=== PATIENT | male | born 1945 | race Caucasian/White ===

== ENCOUNTER 2018-01-01 08:53 | Observation (INO) | payer OTHER, MEDICARE ==
--- NOTE | 2018-01-01 09:02 | EDM.PDOC ---
ED HPI GENERAL MEDICAL PROBLEM - General Chief Complaint: Trauma Stated Complaint: [id number] SLIPPED ON ICE Time Seen by Provider: 01/01/18 09:02 Source of Information: Reports: Patient, Family, RN, RN Notes Reviewed History Limitations: Reports: No Limitations - History of Present Illness INITIAL COMMENTS - FREE TEXT/NARRATIVE: Patient arrives from home by POV with complaint of pain to right ankle and right ribs sustained this morning from a ground level fall from slipping on the ice. Admits to hitting his head but denies loss of consciousness. Onset: Today, Sudden Duration: Constant Quality: Reports: Ache, Pressure, Throbbing Severity: Severe Improves with: Reports: Immobilization Worsens with: Reports: Movement Associated Symptoms: Reports: No Other Symptoms Right Chest Pain Score (Numeric/FACES): 3 Right Ankle Pain Score (Numeric/FACES): 4 - Related Data Allergies Allergy/AdvReac Type Severity Reaction Status Date / Time No Known Allergies Allergy Verified 01/01/18 14:09 Home Meds: Home Meds Hydrochlorothiazide/Lisinopril [Lisinopril-HCTZ 20-12.5 MG] 1 tab PO DAILY 01/01 [History] Latanoprost [Xalatan 0.005% Ophth Soln] 1 drop EYEBOTH BEDTIME 01/01/18 [History ] Lutein/Minerals/Vit A,C & E [I-Samantha] 1 tab PO DAILY 01/01/18 [History] glipiZIDE [Glipizide ER] 5 mg PO BID 01/01/18 [History] metFORMIN [Glucophage XR] 500 mg PO BID 01/01/18 [History] Past Medical History Neurological History: Reports: Neuropathy, Peripheral Endocrine/Metabolic History: Reports: Diabetes, Type II Social & Family History - Family History Family Medical History: Noncontributory - Living Situation & Occupation Living situation: Reports: with Family Occupation: Retired Review of Systems - Review of Systems Review Of Systems: ROS reveals no pertinent complaints other than HPI. ED EXAM, GENERAL - Physical Exam Exam: See Below Exam Limited By: No Limitations General Appearance: Alert, WD/WN, No Apparent Distress Eye Exam: Bilateral Eye: Normal Inspection Ears: Normal External Exam, Normal Canal, Hearing Grossly Normal, Normal TMs Nose: Normal Inspection Throat/Mouth: Normal Inspection, Normal Lips, Normal Teeth, Normal Gums, Normal Oropharynx, Normal Voice, No Airway Compromise Head: Atraumatic, Normocephalic Neck: Normal Inspection, Supple, Non-Tender, Full Range of Motion Respiratory/Chest: No Respiratory Distress, Lungs Clear, Normal Breath Sounds, No Accessory Muscle Use, Other (Tender to palpation with right lateral chest wall with no visible bruising, swelling or deformity. Skin intact.) Cardiovascular: Normal Peripheral Pulses, Regular Rate, Rhythm, No Edema Peripheral Pulses: 1+: Posterior Tibial (L), Posterior Tibial (R), Dorsalis Pedis (L), Dorsalis Pedis (R) GI/Abdominal: Normal Bowel Sounds, Soft, Non-Tender, No Organomegaly, No Distention, No Abnormal Bruit, No Mass (Male) Exam: Deferred Rectal (Males) Exam: Deferred Back Exam: Normal Inspection, Full Range of Motion, NT Extremities: Normal Capillary Refill, Joint Swelling (w/pain and deformity at Rt ankle), Limited Range of Motion (Rt ankle) Neurological: Alert, Oriented, CN II-XII Intact, Normal Cognition, Normal Reflexes, No Motor/Sensory Deficits Psychiatric: Normal Affect, Normal Mood Skin Exam: Warm, Dry, Intact, Normal Color, No Rash ED TRAUMA PROCEDURES - Joint Reduction Site: Other (Right ankle) Sedation: Regional Block (right lower leg/ankle) Local Anesthesia - Lidocaine (Xylocaine): 1% Plain Local Anesthetic Volume: Other (20cc) Pre-Procedure NV Status: Normal Post-Procedure NV Status: Normal Technique: Other (closed manual reduction) Number of Attempts: 1 Post-Reduction Imaging: Completely Reduced, Fracture Seen Joint Reduction Complications: No - Splinting Right Lower Extremity Splint Site: Rt ankle Pre-Procedure NV Status: Normal Post-Procedure NV Status: Normal Splint Material: Fiberglass Splint Design: Sugar Tong, Posterior Applied & Form Fitted By: Provider Provider Post-Splint Application NV Check: NV Status Normal, Good Position Complications: No Course - Vital Signs Last Recorded V/S: Last Vital Signs Temp 36.4 C 01/01/18 13:49 Pulse 63 01/01/18 13:49 Resp 20 01/01/18 13:49 BP 143/75 H 01/01/18 13:49 Pulse Ox 97 01/01/18 13:49 - Orders/Labs/Meds Orders: Active Orders 24 hr Category Date Time Status Peripheral IV Care [RC] 09,21 Care 01/01/18 10:19 Active Splinting [RC] ASDIRECTED Care 01/01/18 11:29 Active Sodium Chloride 0.9% [Saline Flush] Med 01/01/18 10:19 Active 10 ml FLUSH ASDIRECTED PRN DME for Discharge [COMM] Routine Oth 01/01/18 11:29 Ordered Peripheral IV Insertion Adult [OM.PC] Stat Oth 01/01/18 10:19 Ordered Medication Orders Heparin Sodium (Porcine) (Heparin Sodium) 5,000 units SUBCUT Q12HR VIVI Sodium Chloride (Saline Flush) 10 ml FLUSH ASDIRECTED PRN PRN Reason: Keep Vein Open Labs: Laboratory Tests 01/01/18 Range/Units 11:03 POC Glucose 104 (83-110) mg/dl Meds: Medications Generic Name Dose Route Start Last Admin Trade Name Freq PRN Reason Stop Dose Admin Heparin Sodium (Porcine) 5,000 units 01/01/18 21:00 Heparin Sodium SUBCUT Q12HR VIVI Sodium Chloride 10 ml 01/01/18 10:19 Saline Flush FLUSH ASDIRECTED PRN Keep Vein Open Discontinued Medications Generic Name Dose Route Start Last Admin Trade Name Freq PRN Reason Stop Dose Admin Hydrocodone Bitart/Acetaminophen 1 tab 01/01/18 11:29 01/01/18 11:56 [place] 325-10 Mg PO 01/01/18 11:30 1 tab ONETIME ONE Administration Fentanyl 50 mcg 01/01/18 10:19 01/01/18 10:38 Sublimaze IVPUSH 01/01/18 10:20 50 mcg ONETIME ONE Administration Lidocaine HCl 30 ml 01/01/18 10:19 01/01/18 15:10 Xylocaine-Mpf 1% INJECT 01/01/18 10:20 Not Given ONETIME ONE Ondansetron HCl 4 mg 01/01/18 10:19 01/01/18 10:40 Zofran IV 01/01/18 10:20 4 mg ONETIME ONE Administration - Radiology Interpretation Free Text/Narrative:: X-ray right ankle: Acute right ankle fracture/dislocation. See rad report. X-ray Chest with ribs: No sign of rib fracture, underlying lung contusion, ipsilateral dependent pleural effusion or right sided pneumothorax. See rad report. Post reduction: Posterior and medial malleolar fractures distal tibia reasonably apposed. Tiny heel spurs. See rad report. - Re-Assessments/Exams Free Text/Narrative Re-Assessment/Exam: 01/01/[address] Campuzano via [employer], he advises splint as already applied, pain control, non-wt bearing, and he will see pt in orthopedic clinic on Friday , 01/05/18. Departure - Departure Time of Disposition: 13:12 (admitted to Dr. Kelly) Disposition: Admitted As Inpatient 67 Condition: Fair Clinical Impression: Intractable right heel pain Dislocation of ankle Qualifiers: Encounter type: initial encounter Laterality: right Qualified Code(s): S93.04XA - Dislocation of right ankle joint, initial encounter Fracture of ankle, medial malleolus, right, closed Qualifiers: Encounter type: initial encounter Fracture alignment: displaced Qualified Code( s): S82.51XA - Displaced fracture of medial malleolus of right tibia, initial encounter for closed fracture Contusion of right chest wall Qualifiers: Encounter type: initial encounter Qualified Code(s): S20.211A - Contusion of right front wall of thorax, initial encounter - Discharge Information - My Orders Last 24 Hours: My Active Orders 01/01/18 10:19 Peripheral IV Care [RC] 09,21 Sodium Chloride 0.9% [Saline Flush] 10 ml FLUSH ASDIRECTED PRN Peripheral IV Insertion Adult [OM.PC] Stat 01/01/18 11:29 Splinting [RC] ASDIRECTED DME for Discharge [COMM] Routine - Assessment/Plan Last 24 Hours: My Active Orders 01/01/18 10:19 Peripheral IV Care [RC] 09,21 Sodium Chloride 0.9% [Saline Flush] 10 ml FLUSH ASDIRECTED PRN Peripheral IV Insertion Adult [OM.PC] Stat 01/01/18 11:29 Splinting [RC] ASDIRECTED DME for Discharge [COMM] Routine
--- NOTE | 2018-01-01 10:05 | CR ---
Clinical history: 72-year-old male with pain and swelling right ankle (fall). Interpretation: Abnormal. Pronounced soft tissue swelling, ankle joint effusion, fractures of the medial/posterior malleolus di stal tibia and.... anterior medial distal tibial dislocation from the talus. No fibular fracture. CONCLUSION: Acute right ankle fracture/dislocation.
[2018-01-01] MEDS ORDERED: Sodium Chloride 0.9% 10 ML Syringe FLUSH PRN (10:19)
[2018-01-01] MEDS ORDERED: Ondansetron 4 MG/2 ML SDV IV ONE (10:19)
[2018-01-01] MEDS ORDERED: fentaNYL 100 MCG/2 ML SDV IVPUSH ONE (10:19)
--- NOTE | 2018-01-01 10:21 | CR ---
CLINICAL HISTORY: 72-year-old male injured right chest (ribs) in a fall. INTERPRETATION: AP, oblique right rib detail films unremarkable, i.e., no sign of right rib fracture, underlying lung contusion, ipsilateral dependent pleural effusion or right-sided pneumothorax. Osteopenia, slight scoliosis and marginal spondylosis thoracic and upper lumbar spine. No paraspinal soft tissue mass (hematoma) or thoracic vertebral body fracture.
[2018-01-01] MEDS: Lidocaine 1% 30 ML SDV INJECT ONE ×3 (11:20→15:10)
[2018-01-01] MEDS ORDERED: Acetaminophen/HYDROcodone 325-10 MG Tab PO ONE (11:29)
--- NOTE | 2018-01-01 12:19 | CR ---
CLINICAL HISTORY: 72-year-old male post reduction "right ankle fracture/dislocation". INTERPRETATION: AP lateral views of the right ankle reveal satisfactory repositioning of the distal tibia and the ank le mortise joint ( joint asymmetry consistent with significant ligamentous injury and hematoma medial ly) Posterior and medial malleolar fractures distal tibia reasonably apposed. No sign of post reduction fracture of the adjacent right fibula. Tiny heel spurs.
--- NOTE | 2018-01-01 14:58 | PCM.HP ---
H&P History of Present Illness - General Date of Service: 01/01/18 Admit Problem/Dx: Right ankle fracture s/p fall Source of Information: Patient History Limitations: Reports: No Limitations - History of Present Illness Initial Comments - Free Text/Narative: Patient is 72 y/o male with PMH of HTN, DM. He presented to the ER with pain and swelling to the right ankle following a fall. He said he was walking and close to the end of the road he tripped over ice and fell. Denies LOC, no prodrome. No chest pain, dizziness. He sustained swelling to [place] right ankle. In the ER X-ray revealed right ankle fracture/dislocation. [place] reports severe pain. Pain is sharp, worse with movement, relieved by rest. He received [place] in the ED with improvement in pain. Brace was apply to the right leg. Patient lives by himself and had to climb several stairs to his apartment. This will be difficult given his injury. He will be admitted for pain management. He will see Dr. Campuzano on Friday at the orthopedic clinic. Onset of Symptoms: Reports: Today, Sudden Duration of Symptoms: Reports: Minutes:, Hour(s): Location: Reports: Lower Extremity, Right Quality: Reports: Sharp Severity: Severe Improves with: Reports: Rest Worsens with: Reports: Movement Context: Reports: Activity/Exercise, Trauma Associated Symptoms: Reports: Chest Pain Right Chest Pain Score (Numeric/FACES): 3 Right Ankle Pain Score (Numeric/FACES): 4 - Related Data Allergies/Adverse Reactions: Allergies Allergy/AdvReac Type Severity Reaction Status Date / Time No Known Allergies Allergy Verified 01/01/18 14:09 Home Medications: Home Meds Hydrochlorothiazide/Lisinopril [Lisinopril-HCTZ 20-12.5 MG] 1 tab PO DAILY 01/01 [History] Latanoprost [Xalatan 0.005% Ophth Soln] 1 drop EYEBOTH BEDTIME 01/01/18 [History ] Lutein/Minerals/Vit A,C & E [I-Samantha] 1 tab PO DAILY 01/01/18 [History] glipiZIDE [Glipizide ER] 5 mg PO BID 01/01/18 [History] metFORMIN [Glucophage] 500 mg PO BIDMEALS 01/01/18 [History] Past Medical History HEENT History: Reports: Hard of Hearing, Impaired Vision Other HEENT History: wears glasses, SUN'AQ Cardiovascular History: Reports: Hypertension Respiratory History: Reports: None Gastrointestinal History: Reports: None Genitourinary History: Reports: None Musculoskeletal History: Reports: None Neurological History: Reports: Neuropathy, Peripheral Psychiatric History: Reports: None Endocrine/Metabolic History: Reports: Diabetes, Type II Hematologic History: Reports: None Immunologic History: Reports: None Oncologic (Cancer) History: Reports: None Dermatologic History: Reports: None - Infectious Disease History Infectious Disease History: Reports: Chicken Pox, Measles - Past Surgical History Head Surgeries/Procedures: Reports: None Social & Family History - Family History Family Medical History: Noncontributory - Tobacco Use Smoking Status *Q: Never Smoker Second Hand Smoke Exposure: No - Caffeine Use Caffeine Use: Reports: Coffee - Recreational Drug Use Recreational Drug Use: No H&P Review of Systems - Review of Systems: Review Of Systems: See Below General: Reports: No Symptoms HEENT: Reports: No Symptoms Pulmonary: Reports: No Symptoms Cardiovascular: Reports: No Symptoms Gastrointestinal: Reports: No Symptoms Genitourinary: Reports: No Symptoms Musculoskeletal: Reports: Foot Pain, Muscle Pain Skin: Reports: No Symptoms Psychiatric: Reports: No Symptoms Neurological: Reports: No Symptoms Hematologic/Lymphatic: Reports: No Symptoms Immunologic: Reports: No Symptoms Exam - Exam Exam: See Below - Vital Signs Vital Signs: Last Vital Signs Temp 97.6 F 01/01/18 13:49 Pulse 63 01/01/18 13:49 Resp 20 01/01/18 13:49 BP 143/75 H 01/01/18 13:49 Pulse Ox 97 01/01/18 13:49 Weight: 191 lb 12.8 oz - Exam Quality Assessment: DVT Prophylaxis General: Alert, Oriented, 4 HEENT: PERRLA, Hearing Intact, Mucosa Moist & [place], Nares Patent, Normal Nasal Septum, Posterior Pharynx Clear, Conjunctiva Clear, EOMI, EACs Clear, TMs Clear Neck: Supple, Trachea Midline, 2 Lungs: Clear to Auscultation, Normal Respiratory Effort Cardiovascular: Regular Rate, Regular Rhythm GI/Abdominal Exam: Normal Bowel Sounds, Soft, Non-Tender, No Organomegaly, No Distention, No Abnormal Bruit, No Mass, Pelvis Stable (Male) Exam: No Hernia, Normal Inspection, Normal Prostate, Circumcised Rectal (Males) Exam: Normal Exam, Normal Rectal Tone, Prostate Normal Back Exam: Normal Inspection, Full Range of Motion, NT Extremities: Normal Inspection, Normal Range of Motion, Non-Tender, No Pedal Edema, Normal Capillary Refill, Leg Pain, Limited Range of Motion, Other (Right ankle movement limitted due to pain) Skin: Warm, Dry, Intact Neurological: Cranial Nerves Intact, Reflexes Equal Bilateral Neuro Extensive - Mental Status: Alert, Oriented x3, Normal Mood/Affect, Normal Cognition Neuro Extensive - Motor, Sensory, Reflexes: CN II-XII Intact, Normal Gait, Normal Reflexes Psychiatric: Alert, Normal Affect, Normal Mood - Patient Data Lab Results Last 24 hrs: Laboratory Results - last 24 hr 01/01/18 Range/Units 11:03 POC Glucose 104 (83-110) mg/dl Result Diagrams: 01/01/18 15:40 Problem List Initiated/Reviewed/Updated: Yes Orders Last 24hrs: Active Orders 24 hr Category Date Time Status Peripheral IV Care [RC] , Care 01/01/18 10:19 Active Splinting [RC] ASDIRECTED Care 01/01/18 11:29 Active Sodium Chloride 0.9% [Saline Flush] Med 01/01/18 10:19 Active 10 ml FLUSH ASDIRECTED PRN DME for Discharge [COMM] Routine Oth 01/01/18 11:29 Ordered Peripheral IV Insertion Adult [OM.PC] Stat Oth 01/01/18 10:19 Ordered Medication Orders Sodium Chloride (Saline Flush) 10 ml FLUSH ASDIRECTED PRN PRN Reason: Keep Vein Open Assessment/Plan Comment:: Assesment/Plan #Right Ankle fracture following a fall -Will admit for pain control -Fall precautions -Will see Dr. Campuzano in clinic at [facility] in [place] on Friday -will send for basic routine labs #HTN -Controlled -Continue homemedication -Monitor BP closely #DM-II -will reconcile home medication -Bedside glucose bid #DVT ppx with heparin SQ #Full code
[2018-01-01] MEDS ORDERED: Propofol 200 MG/20 ML SDV IV ONE (15:05)
[2018-01-01] MEDS: metFORMIN 500 MG Tab PO SCH (17:52)
[2018-01-01] MEDS: glipiZIDE 5 MG Tab.ER PO SCH (17:52)
[2018-01-01] MEDS: Acetaminophen/HYDROcodone 325-5 MG Tab PO PRN ×2 (17:53→23:46)
[2018-01-01] MEDS: Heparin Sodium 5,000 Units/ML Vial SUBCUT SCH (21:04)
[2018-01-01] MEDS: Latanoprost 0.005% Ophth Soln 2.5 ML Bottle EYEBOTH SCH (21:04)
[2018-01-02] MEDS: Lisinopril 20 MG Tab PO SCH (08:19)
[2018-01-02] MEDS: glipiZIDE 5 MG Tab.ER PO SCH ×2 (08:20→17:25)
[2018-01-02] MEDS: metFORMIN 500 MG Tab PO SCH ×2 (08:20→17:26)
[2018-01-02] MEDS: Hydrochlorothiazide 25 MG Tab PO SCH (08:20)
[2018-01-02] MEDS: Acetaminophen/HYDROcodone 325-5 MG Tab PO PRN ×2 (08:21→21:31)
[2018-01-02] MEDS: Lutein/Minerals/Vit A,C & E Tab PO SCH (08:21)
[2018-01-02] MEDS: Heparin Sodium 5,000 Units/ML Vial SUBCUT SCH ×2 (08:22→21:30)
--- NOTE | 2018-01-02 14:39 | PCM.PN ---
- General Info Date of Service: 01/02/18 Admission Dx/Problem (Free Text): Right ankle fracture s/p fall Subjective Update: Patient is 72 y/o male with PMH of HTN, DM. He presented to the ER with pain and swelling to the right ankle following a fall. He was found to have right ankle fracture/dislocation and susbequently admitted for pain management. Doing well. No complaints today. Functional Status: Reports: Pain Controlled - Review of Systems General: Reports: No Symptoms HEENT: Reports: No Symptoms Pulmonary: Reports: No Symptoms Cardiovascular: Reports: No Symptoms Gastrointestinal: Reports: No Symptoms Genitourinary: Reports: No Symptoms Musculoskeletal: Reports: No Symptoms Skin: Reports: No Symptoms Neurological: Reports: No Symptoms Psychiatric: Reports: No Symptoms - Patient Data Vitals - Most Recent: Last Vital Signs Temp 98.6 F 01/02/18 11:11 Pulse 62 01/02/18 11:11 Resp 20 01/02/18 11:11 BP 118/60 01/02/18 11:11 Pulse Ox 96 01/02/18 11:11 Weight - Most Recent: 191 lb 12.8 oz I&O - Last 24 Hours: Intake & Output 01/01/18 01/02/18 01/02/18 22:59 06:59 14:59 Intake Total 740 200 Output Total 900 1000 Balance -160 -800 Lab Results Last 24 Hours: Laboratory Results - last 24 hr 01/01/18 01/01/18 01/01/18 Range/Units 15:40 15:40 15:40 WBC 12.8 H (5.0-10.0) 10^3/uL RBC 5.08 (4.6-6.2) 10^6/uL Hgb 14.8 (14.0-18.0) g/dL Hct 44.5 (40.0-54.0) % MCV 87.6 (80-100) fL MCH 29.1 (27.0-34.0) pg MCHC 33.3 (33.0-35.0) g/dL Plt Count 210 (150-450) 10^3/uL Neut % (Auto) 84.5 H (42.2-75.2) % Lymph % (Auto) 7.4 L (20.5-50.1) % [place] % (Auto) 7.7 (2-8) % Eos % (Auto) 0.2 L (1.0-3.0) % Baso % (Auto) 0.2 (0.0-1.0) % PT 10.8 (9.0-12.0) SEC INR 1.1 (0.9-1.2) APTT 24.5 (22.0-34.0) SEC Sodium 134 L (135-145) mmol/L Potassium 4.5 (3.6-5.0) mmol/L Chloride 99 L (101-111) mmol/L Carbon Dioxide 26.0 (21.0-31.0) mmol/L Anion Gap 13.5 BUN 17 (7-18) mg/dL Creatinine 1.2 (0.6-1.3) mg/dL Est Cr Clr Drug Dosing 58.30 mL/min Estimated GFR (MDRD) 60 Glucose 315 H (74-105) mg/dL POC Glucose (83-110) mg/dl Calcium 8.5 (8.4-10.2) mg/dl 01/01/18 01/02/18 Range/Units 16:57 07:31 WBC (5.0-10.0) 10^3/uL RBC (4.6-6.2) 10^6/uL Hgb (14.0-18.0) g/dL Hct (40.0-54.0) % MCV (80-100) fL MCH (27.0-34.0) pg MCHC (33.0-35.0) g/dL Plt Count (150-450) 10^3/uL Neut % (Auto) (42.2-75.2) % Lymph % (Auto) (20.5-50.1) % [place] % (Auto) (2-8) % Eos % (Auto) (1.0-3.0) % Baso % (Auto) (0.0-1.0) % PT (9.0-12.0) SEC INR (0.9-1.2) APTT (22.0-34.0) SEC Sodium (135-145) mmol/L Potassium (3.6-5.0) mmol/L Chloride (101-111) mmol/L Carbon Dioxide (21.0-31.0) mmol/L Anion Gap BUN (7-18) mg/dL Creatinine (0.6-1.3) mg/dL Est Cr Clr Drug Dosing mL/min Estimated GFR (MDRD) Glucose (74-105) mg/dL POC Glucose 232 H 115 H (83-110) mg/dl Calcium (8.4-10.2) mg/dl Med Orders - Current: Current Medications Hydrocodone Bitart/Acetaminophen ([place] 325-5 Mg) 1 tab PO Q6H PRN PRN Reason: Pain Last Admin: 01/02/18 08:21 Dose: 1 tab Glipizide (Glucotrol Xl) 5 mg PO BIDMEALS [facility] Last Admin: 01/02/18 08:20 Dose: 5 mg Heparin Sodium (Porcine) (Heparin Sodium) 5,000 units SUBCUT Q12HR [facility] Last Admin: 01/02/18 08:22 Dose: 5,000 units Hydrochlorothiazide (Hydrochlorothiazide) 12.5 mg PO DAILY [facility] Last Admin: 01/02/18 08:20 Dose: 12.5 mg Latanoprost (Xalatan 0.005% Ophth Soln) 0 ml EYEBOTH BEDTIME [facility] Last Admin: 01/01/18 21:04 Dose: 1 drop Lisinopril (Prinivil) 20 mg PO DAILY [facility] Last Admin: 01/02/18 08:19 Dose: 20 mg Metformin HCl (Glucophage) 500 mg PO BIDMEALS [facility] Last Admin: 01/02/18 08:20 Dose: 500 mg Multivitamins/Minerals (I-Samantha) 1 each PO DAILY [facility] Last Admin: 01/02/18 08:21 Dose: 1 each Sodium Chloride (Saline Flush) 10 ml FLUSH ASDIRECTED PRN PRN Reason: Keep Vein Open Last Admin: 01/01/18 21:08 Dose: 10 ml Discontinued Medications Hydrocodone Bitart/Acetaminophen ([place] 325-10 Mg) 1 tab PO ONETIME ONE Stop: 01/01/18 11:30 Last Admin: 01/01/18 11:56 Dose: 1 tab Fentanyl (Sublimaze) 50 mcg IVPUSH ONETIME ONE Stop: 01/01/18 10:20 Last Admin: 01/01/18 10:38 Dose: 50 mcg Lidocaine HCl (Xylocaine-Mpf 1%) 30 ml INJECT ONETIME ONE Stop: 01/01/18 10:20 Last Admin: 01/01/18 15:10 Dose: Not Given Ondansetron HCl (Zofran) 4 mg IV ONETIME ONE Stop: 01/01/18 10:20 Last Admin: 01/01/18 10:40 Dose: 4 mg - Exam General: Alert, Oriented HEENT: Pupils Equal, Pupils Reactive, EOMI, Mucous Membr. Moist/[place] Neck: Supple Lungs: Clear to Auscultation, Normal Respiratory Effort Cardiovascular: Regular Rate, Regular Rhythm GI/Abdominal Exam: Normal Bowel Sounds, Soft, Non-Tender, No Organomegaly, No Distention, No Abnormal Bruit, No Mass, Pelvis Stable (Male) Exam: No Hernia, Normal Inspection, Normal Prostate, Circumcised Back Exam: Normal Inspection, Full Range of Motion Extremities: Normal Inspection, Normal Range of Motion, Non-Tender, No Pedal Edema, Normal Capillary Refill Skin: Warm, Dry, Intact Wound/Incisions: Healing Well Neurological: No New Focal Deficit Psy/Mental Status: Alert, Normal Affect, Normal Mood - Problem List Review Problem List Initiated/Reviewed/Updated: Yes - My Orders Last 24 Hours: My Active Orders 01/01/18 15:04 Patient Status [ADT] Routine Vital Signs [RC] Q4H DVT/VTE Prophylaxis Reflex [OM.PC] Routine Resuscitation Status Routine 01/01/18 15:11 Antiembolic Devices [RC] .Routine VTE/DVT Education [RC] PER UNIT ROUTINE 01/01/18 15:14 Sequential Compression Device [OM.PC] Per Unit Routine 01/01/18 15:18 Acetaminophen/HYDROcodone [[place] 325-5 MG] 1 tab PO Q6H PRN 01/01/18 15:21 Blood Glucose Check, Bedside [RC] 07,17 01/01/18 18:00 glipiZIDE [Glucotrol XL] 5 mg PO BIDMEALS metFORMIN [Glucophage] 500 mg PO BIDMEALS 01/01/18 21:00 Heparin Sodium 5,000 units SUBCUT Q12HR Latanoprost [Xalatan 0.005% Ophth Soln] 0 ml EYEBOTH BEDTIME 01/01/18 Dinner 2 Gram Sodium Diet [DIET] 01/02/18 09:00 Hydrochlorothiazide 12.5 mg PO DAILY Lisinopril [Prinivil] 20 mg PO DAILY Lutein/Minerals/Vit A,C & E [I-Samantha] 1 each PO DAILY 01/03/18 07:00 CBC WITH AUTO DIFF [HEME] Routine - Plan Plan:: Assesment/Plan #Right Ankle fracture following a fall -pain controled -Fall precautions -Will see Dr. Campuzano in clinic at [facility] in [place] on Friday #Leukocytosis -likely reactive -will repeat cbc in the AM #HTN -Controlled -Continue home medication -Monitor BP closely #DM-II -will reconcile home medication -Bedside glucose bid #DVT ppx with heparin SQ #Full code
[2018-01-02] MEDS: Latanoprost 0.005% Ophth Soln 2.5 ML Bottle EYEBOTH SCH (21:34)
[2018-01-03] MEDS: Lisinopril 20 MG Tab PO SCH (08:24)
[2018-01-03] MEDS: glipiZIDE 5 MG Tab.ER PO SCH ×2 (08:24→17:25)
[2018-01-03] MEDS: metFORMIN 500 MG Tab PO SCH ×2 (08:24→17:25)
[2018-01-03] MEDS: Acetaminophen/HYDROcodone 325-5 MG Tab PO PRN ×3 (08:25→21:25)
[2018-01-03] MEDS: Hydrochlorothiazide 25 MG Tab PO SCH (08:26)
[2018-01-03] MEDS: Lutein/Minerals/Vit A,C & E Tab PO SCH (08:26)
[2018-01-03] MEDS: Heparin Sodium 5,000 Units/ML Vial SUBCUT SCH ×2 (08:26→21:24)
--- NOTE | 2018-01-03 09:45 | PCM.PN ---
- General Info Date of Service: 01/03/18 Admission Dx/Problem (Free Text): Right ankle fracture s/p fall Subjective Update: Patient is 72 y/o male with PMH of HTN, DM. He presented to the ER with pain and swelling to the right ankle following a fall. He was found to have right ankle fracture/dislocation and susbequently admitted for pain management. Doing well. No complaints today. Functional Status: Reports: Pain Controlled - Review of Systems General: Reports: No Symptoms HEENT: Reports: No Symptoms Pulmonary: Reports: No Symptoms Cardiovascular: Reports: No Symptoms Gastrointestinal: Reports: No Symptoms Genitourinary: Reports: No Symptoms Musculoskeletal: Reports: No Symptoms Skin: Reports: No Symptoms Neurological: Reports: No Symptoms Psychiatric: Reports: No Symptoms - Patient Data Vitals - Most Recent: Last Vital Signs Temp 98.7 F 01/03/18 07:30 Pulse 70 01/03/18 07:30 Resp 18 01/03/18 07:30 BP 122/69 01/03/18 08:24 Pulse Ox 95 01/03/18 07:30 Weight - Most Recent: 191 lb 12.8 oz I&O - Last 24 Hours: Intake & Output 01/02/18 01/03/18 01/03/18 22:59 06:59 14:59 Intake Total 120 Output Total 925 Balance -805 Lab Results Last 24 Hours: Laboratory Results - last 24 hr 01/02/18 01/03/18 01/03/18 Range/Units 16:48 05:25 07:38 WBC 10.3 H (5.0-10.0) 10^3/uL RBC 4.98 (4.6-6.2) 10^6/uL Hgb 14.5 (14.0-18.0) g/dL Hct 43.8 (40.0-54.0) % MCV 88.0 (80-100) fL MCH 29.1 (27.0-34.0) pg MCHC 33.1 (33.0-35.0) g/dL Plt Count 223 (150-450) 10^3/uL Neut % (Auto) 63.3 (42.2-75.2) % Lymph % (Auto) 18.5 L (20.5-50.1) % [place] % (Auto) 16.6 H (2-8) % Eos % (Auto) 1.4 (1.0-3.0) % Baso % (Auto) 0.2 (0.0-1.0) % POC Glucose 124 H 108 (83-110) mg/dl Med Orders - Current: Current Medications Hydrocodone Bitart/Acetaminophen ([place] 325-5 Mg) 1 tab PO Q6H PRN PRN Reason: Pain Last Admin: 01/03/18 08:25 Dose: 1 tab Glipizide (Glucotrol Xl) 5 mg PO BIDMEALS [facility] Last Admin: 01/03/18 08:24 Dose: 5 mg Heparin Sodium (Porcine) (Heparin Sodium) 5,000 units SUBCUT Q12HR [facility] Last Admin: 01/03/18 08:26 Dose: 5,000 units Hydrochlorothiazide (Hydrochlorothiazide) 12.5 mg PO DAILY [facility] Last Admin: 01/03/18 08:26 Dose: 12.5 mg Latanoprost (Xalatan 0.005% Ophth Soln) 0 ml EYEBOTH BEDTIME [facility] Last Admin: 01/02/18 21:34 Dose: 1 drop Lisinopril (Prinivil) 20 mg PO DAILY [facility] Last Admin: 01/03/18 08:24 Dose: 20 mg Metformin HCl (Glucophage) 500 mg PO BIDMEALS [facility] Last Admin: 01/03/18 08:24 Dose: 500 mg Multivitamins/Minerals (I-Samantha) 1 each PO DAILY [facility] Last Admin: 01/03/18 08:26 Dose: 1 each Sodium Chloride (Saline Flush) 10 ml FLUSH ASDIRECTED PRN PRN Reason: Keep Vein Open Last Admin: 01/01/18 21:08 Dose: 10 ml Discontinued Medications Hydrocodone Bitart/Acetaminophen ([place] 325-10 Mg) 1 tab PO ONETIME ONE Stop: 01/01/18 11:30 Last Admin: 01/01/18 11:56 Dose: 1 tab Fentanyl (Sublimaze) 50 mcg IVPUSH ONETIME ONE Stop: 01/01/18 10:20 Last Admin: 01/01/18 10:38 Dose: 50 mcg Lidocaine HCl (Xylocaine-Mpf 1%) 30 ml INJECT ONETIME ONE Stop: 01/01/18 10:20 Last Admin: 01/01/18 15:10 Dose: Not Given Ondansetron HCl (Zofran) 4 mg IV ONETIME ONE Stop: 01/01/18 10:20 Last Admin: 01/01/18 10:40 Dose: 4 mg Propofol (Diprivan 20 Ml) 200 mg IV .STK-MED ONE Stop: 01/01/18 15:06 - Exam Quality Assessment: DVT Prophylaxis General: Alert, Oriented HEENT: Pupils Equal, Pupils Reactive, EOMI, Mucous Membr. Moist/[place] Neck: Supple Lungs: Clear to Auscultation, Normal Respiratory Effort Cardiovascular: Regular Rate, Regular Rhythm GI/Abdominal Exam: Normal Bowel Sounds, Soft, Non-Tender, No Organomegaly, No Distention, No Abnormal Bruit, No Mass, Pelvis Stable (Male) Exam: No Hernia, Normal Inspection, Normal Prostate, Circumcised Back Exam: Normal Inspection, Full Range of Motion Extremities: Normal Inspection, Normal Range of Motion, Non-Tender, No Pedal Edema, Normal Capillary Refill Skin: Warm, Dry, Intact Wound/Incisions: Healing Well Neurological: No New Focal Deficit Psy/Mental Status: Alert, Normal Affect, Normal Mood - Problem List Review Problem List Initiated/Reviewed/Updated: Yes - My Orders Last 24 Hours: My Active Orders 01/02/18 09:00 Hydrochlorothiazide 12.5 mg PO DAILY Lisinopril [Prinivil] 20 mg PO DAILY Lutein/Minerals/Vit A,C & E [I-Samantha] 1 each PO DAILY 01/02/18 20:24 Communication Order [RC] DAILY - Plan Plan:: Assessment/Plan #Right Ankle fracture following a fall -pain controlled -Fall precautions -Will see Dr. Campuzano in clinic at [facility] in [place] on Friday -keep npo from midnight on Friday #Leukocytosis -likely reactive -wbc trended down #HTN -Controlled -Continue home medication -Monitor BP closely #DM-II -continue home medication -Bedside glucose bid #DVT ppx with heparin SQ #Full code
[2018-01-03] MEDS: Latanoprost 0.005% Ophth Soln 2.5 ML Bottle EYEBOTH SCH (21:25)
[2018-01-04] MEDS: Lutein/Minerals/Vit A,C & E Tab PO SCH (08:24)
[2018-01-04] MEDS: metFORMIN 500 MG Tab PO SCH ×2 (08:24→17:32)
[2018-01-04] MEDS: Hydrochlorothiazide 25 MG Tab PO SCH (08:24)
[2018-01-04] MEDS: glipiZIDE 5 MG Tab.ER PO SCH ×2 (08:25→17:32)
[2018-01-04] MEDS: Lisinopril 20 MG Tab PO SCH (08:25)
[2018-01-04] MEDS: Acetaminophen/HYDROcodone 325-5 MG Tab PO PRN ×3 (08:26→20:56)
[2018-01-04] MEDS: Heparin Sodium 5,000 Units/ML Vial SUBCUT SCH ×2 (08:27→20:55)
--- NOTE | 2018-01-04 12:09 | PCM.PN ---
- General Info Date of Service: 01/04/18 Admission Dx/Problem (Free Text): Right ankle fracture s/p fall Subjective Update: Patient is 72 y/o male with PMH of HTN, DM. He presented to the ER with pain and swelling to the right ankle following a fall. He was found to have right ankle fracture/dislocation and susbequently admitted for pain management. Doing well. No complaints today. Functional Status: Reports: Pain Controlled - Review of Systems General: Reports: No Symptoms HEENT: Reports: No Symptoms Pulmonary: Reports: No Symptoms Cardiovascular: Reports: No Symptoms Gastrointestinal: Reports: No Symptoms Genitourinary: Reports: No Symptoms Musculoskeletal: Reports: No Symptoms Skin: Reports: No Symptoms Neurological: Reports: No Symptoms Psychiatric: Reports: No Symptoms - Patient Data Vitals - Most Recent: Last Vital Signs Temp 98.4 F 01/04/18 11:33 Pulse 72 01/04/18 11:33 Resp 18 01/04/18 11:33 BP 124/63 01/04/18 11:33 Pulse Ox 95 01/04/18 11:33 Weight - Most Recent: 191 lb 12.8 oz I&O - Last 24 Hours: Intake & Output 01/03/18 01/04/18 01/04/18 22:59 06:59 14:59 Intake Total 840 300 790 Output Total 600 100 300 Balance 240 200 490 Lab Results Last 24 Hours: Laboratory Results - last 24 hr 01/03/18 01/04/18 Range/Units 16:59 07:41 POC Glucose 129 H 112 H (83-110) mg/dl Med Orders - Current: Current Medications Hydrocodone Bitart/Acetaminophen ([place] 325-5 Mg) 1 tab PO Q6H PRN PRN Reason: Pain Last Admin: 01/04/18 08:26 Dose: 1 tab Glipizide (Glucotrol Xl) 5 mg PO BIDMEALS [facility] Last Admin: 01/04/18 08:25 Dose: 5 mg Heparin Sodium (Porcine) (Heparin Sodium) 5,000 units SUBCUT Q12HR [facility] Last Admin: 01/04/18 08:27 Dose: 5,000 units Hydrochlorothiazide (Hydrochlorothiazide) 12.5 mg PO DAILY [facility] Last Admin: 01/04/18 08:24 Dose: 12.5 mg Latanoprost (Xalatan 0.005% Ophth Soln) 0 ml EYEBOTH BEDTIME [facility] Last Admin: 01/03/18 21:25 Dose: 1 drop Lisinopril (Prinivil) 20 mg PO DAILY [facility] Last Admin: 01/04/18 08:25 Dose: 20 mg Metformin HCl (Glucophage) 500 mg PO BIDMEALS [facility] Last Admin: 01/04/18 08:24 Dose: 500 mg Multivitamins/Minerals (I-Samantha) 1 each PO DAILY [facility] Last Admin: 01/04/18 08:24 Dose: 1 each Senna/Docusate Sodium (Senna Plus) 2 tab PO BID PRN PRN Reason: Constipation Last Admin: 01/04/18 08:25 Dose: 2 tab Sodium Chloride (Saline Flush) 10 ml FLUSH ASDIRECTED PRN PRN Reason: Keep Vein Open Last Admin: 01/01/18 21:08 Dose: 10 ml Discontinued Medications Hydrocodone Bitart/Acetaminophen ([place] 325-10 Mg) 1 tab PO ONETIME ONE Stop: 01/01/18 11:30 Last Admin: 01/01/18 11:56 Dose: 1 tab Fentanyl (Sublimaze) 50 mcg IVPUSH ONETIME ONE Stop: 01/01/18 10:20 Last Admin: 01/01/18 10:38 Dose: 50 mcg Lidocaine HCl (Xylocaine-Mpf 1%) 30 ml INJECT ONETIME ONE Stop: 01/01/18 10:20 Last Admin: 01/01/18 15:10 Dose: Not Given Ondansetron HCl (Zofran) 4 mg IV ONETIME ONE Stop: 01/01/18 10:20 Last Admin: 01/01/18 10:40 Dose: 4 mg Propofol (Diprivan 20 Ml) 200 mg IV .STK-MED ONE Stop: 01/01/18 15:06 - Exam General: Alert, Oriented HEENT: Pupils Equal, Pupils Reactive, EOMI, Mucous Membr. Moist/[place] Neck: Supple Lungs: Clear to Auscultation, Normal Respiratory Effort Cardiovascular: Regular Rate, Regular Rhythm GI/Abdominal Exam: Normal Bowel Sounds, Soft, Non-Tender, No Organomegaly, No Distention, No Abnormal Bruit, No Mass, Pelvis Stable (Male) Exam: No Hernia, Normal Inspection, Normal Prostate, Circumcised Back Exam: Normal Inspection, Full Range of Motion Extremities: Normal Inspection, Normal Range of Motion, Non-Tender, No Pedal Edema, Normal Capillary Refill Skin: Warm, Dry, Intact Wound/Incisions: Healing Well Neurological: No New Focal Deficit Psy/Mental Status: Alert, Normal Affect, Normal Mood - Problem List Review Problem List Initiated/Reviewed/Updated: Yes - My Orders Last 24 Hours: My Active Orders 01/03/18 11:38 Docusate Sodium/Sennosides [Senna Plus] 2 tab PO BID PRN - Plan Plan:: Assessment/Plan #Right Ankle fracture following a fall -pain controlled -Fall precautions -Will see Dr. Campuzano in clinic at [facility] in [place] on Friday -keep npo from midnight. #Leukocytosis -likely reactive -Improved #HTN -Controlled -Continue home medication -Monitor BP closely #DM-II -continue home medication -Bedside glucose bid #DVT ppx with heparin SQ #Full code
[2018-01-04] MEDS: Latanoprost 0.005% Ophth Soln 2.5 ML Bottle EYEBOTH SCH (20:58)
[2018-01-05] MEDS: Lisinopril 20 MG Tab PO SCH (08:18)
[2018-01-05] MEDS: Acetaminophen/HYDROcodone 325-5 MG Tab PO PRN (08:18)
--- NOTE | 2018-01-05 08:48 | PCM.DCSUM1 ---
Discharge Summary - Hospital Course Free Text/Narrative:: Patient is 72 y/o male with PMH of HTN, DM. He presented to the ER with pain and swelling to the right ankle following a fall. He was found to have right ankle fracture/dislocation and susbequently admitted for pain management. He is stable for discharge. He is scheduled to see Dr. Campuzano today at the orthopedic clinic in [facility]. - Discharge Data Discharge Date: 01/05/18 Discharge Disposition: Home, Self-Care 01 Condition: Good - Discharge Diagnosis/Problem(s) (1) Contusion of right chest wall SNOMED Code(s): 60197085 ICD Code: S20.211A - CONTUSION OF RIGHT FRONT WALL OF THORAX, INITIAL ENCOUNTER Status: Acute Current Visit: No Qualifiers: Encounter type: initial encounter Qualified Code(s): S20.211A - Contusion of right front wall of thorax, initial encounter (2) Dislocation of ankle SNOMED Code(s): 877238037 ICD Code: S93.06XA - DISLOCATION OF UNSPECIFIED ANKLE JOINT, INITIAL ENCOUNTER Status: Acute Current Visit: No Qualifiers: Encounter type: initial encounter Laterality: right Qualified Code(s): S93.04XA - Dislocation of right ankle joint, initial encounter (3) Fracture of ankle, medial malleolus, right, closed SNOMED Code(s): 17467477 ICD Code: S82.51XA - DISP FX OF MEDIAL MALLEOLUS OF RIGHT TIBIA, INIT FOR CLOS FX Status: Acute Current Visit: No Qualifiers: Encounter type: initial encounter Fracture alignment: displaced Qualified Code(s): S82.51XA - Displaced fracture of medial malleolus of right tibia, initial encounter for closed fracture (4) Intractable right heel pain SNOMED Code(s): 8420999 ICD Code: M79.671 - PAIN IN RIGHT FOOT Status: Acute Current Visit: No - Patient Instructions Diet: Heart Healthy Diet Activity: Non Weight Bearing - Discharge Plan Prescriptions/Med Rec: Acetaminophen/HYDROcodone [[place] 325-5 MG] 1 tab PO Q6H PRN 3 Days #15 tablet PRN Reason: Pain Home Medications: Home Meds Hydrochlorothiazide/Lisinopril [Lisinopril/HCTZ 20-12.5 MG] 1 tab PO DAILY 01/01 [History] Latanoprost [Xalatan 0.005% Ophth Soln] 1 drop EYEBOTH BEDTIME 01/01/18 [History ] Lutein/Minerals/Vit A,C & E [I-Samantha] 1 tab PO DAILY 01/01/18 [History] glipiZIDE [Glipizide ER] 5 mg PO BID 01/01/18 [History] metFORMIN [Glucophage] 500 mg PO BIDMEALS 01/01/18 [History] Acetaminophen/HYDROcodone [[place] 325-5 MG] 1 tab PO Q6H PRN 3 Days #15 tablet [Rx] Patient Handouts: Ankle Fracture, Ankle Pain Forms: ED Department Discharge Referrals: PCP,None [Primary Care Provider] - - Discharge Summary/Plan Comment DC Time >30 min.: Yes Discharge Summary/Plan Comment: Patient to see orthopedic surgeon Dr. Campuzano today. - Patient Data Vitals - Most Recent: Last Vital Signs Temp 98.0 F 01/05/18 07:47 Pulse 72 01/05/18 07:47 Resp 20 01/05/18 07:47 BP 117/75 01/05/18 08:18 Pulse Ox 95 01/05/18 07:47 Weight - Most Recent: 191 lb 12.8 oz I&O - Last 24 hours: Intake & Output 01/04/18 01/05/18 01/05/18 22:59 06:59 14:59 Intake Total 640 0 Output Total 1075 600 Balance -435 -600 Lab Results - Last 24 hrs: Laboratory Results - last 24 hr 01/04/18 01/05/18 Range/Units 17:18 07:43 POC Glucose 85 111 H (83-110) mg/dl Med Orders - Current: Current Medications Hydrocodone Bitart/Acetaminophen ([place] 325-5 Mg) 1 tab PO Q6H PRN PRN Reason: Pain Last Admin: 01/05/18 08:18 Dose: 1 tab Glipizide (Glucotrol Xl) 5 mg PO BIDMEALS [facility] Last Admin: 01/04/18 17:32 Dose: 5 mg Heparin Sodium (Porcine) (Heparin Sodium) 5,000 units SUBCUT Q12HR [facility] Last Admin: 01/04/18 20:55 Dose: 5,000 units Hydrochlorothiazide (Hydrochlorothiazide) 12.5 mg PO DAILY [facility] Last Admin: 01/04/18 08:24 Dose: 12.5 mg Latanoprost (Xalatan 0.005% Ophth Soln) 0 ml EYEBOTH BEDTIME [facility] Last Admin: 01/04/18 20:58 Dose: 1 drop Lisinopril (Prinivil) 20 mg PO DAILY [facility] Last Admin: 01/05/18 08:18 Dose: 20 mg Metformin HCl (Glucophage) 500 mg PO BIDMEALS [facility] Last Admin: 01/04/18 17:32 Dose: 500 mg Multivitamins/Minerals (I-Samantha) 1 each PO DAILY [facility] Last Admin: 01/04/18 08:24 Dose: 1 each Senna/Docusate Sodium (Senna Plus) 2 tab PO BID PRN PRN Reason: Constipation Last Admin: 01/04/18 08:25 Dose: 2 tab Sodium Chloride (Saline Flush) 10 ml FLUSH ASDIRECTED PRN PRN Reason: Keep Vein Open Last Admin: 01/01/18 21:08 Dose: 10 ml Discontinued Medications Hydrocodone Bitart/Acetaminophen ([place] 325-10 Mg) 1 tab PO ONETIME ONE Stop: 01/01/18 11:30 Last Admin: 01/01/18 11:56 Dose: 1 tab Fentanyl (Sublimaze) 50 mcg IVPUSH ONETIME ONE Stop: 01/01/18 10:20 Last Admin: 01/01/18 10:38 Dose: 50 mcg Lidocaine HCl (Xylocaine-Mpf 1%) 30 ml INJECT ONETIME ONE Stop: 01/01/18 10:20 Last Admin: 01/01/18 15:10 Dose: Not Given Ondansetron HCl (Zofran) 4 mg IV ONETIME ONE Stop: 01/01/18 10:20 Last Admin: 01/01/18 10:40 Dose: 4 mg Propofol (Diprivan 20 Ml) 200 mg IV .STK-MED ONE Stop: 01/01/18 15:06
[2018-01-05] MEDS: glipiZIDE 5 MG Tab.ER PO SCH (09:32)
[2018-01-05] MEDS: metFORMIN 500 MG Tab PO SCH (09:32)
[2018-01-05] MEDS: Hydrochlorothiazide 25 MG Tab PO SCH (09:33)
[2018-01-05] MEDS: Lutein/Minerals/Vit A,C & E Tab PO SCH (09:33)
[2018-01-05] MEDS: Heparin Sodium 5,000 Units/ML Vial SUBCUT SCH (09:33)
== END 2018-01-05 09:00 | disposition home or self-care (01) ==
LOC: DL.ED 08:53 → UNDOADMOB 13:37 → DL.MS 13:37
PROVIDERS: ADMIT Student in an Organized Health Care Education/Training Program; ATTEND Student in an Organized Health Care Education/Training Program
DX: S82.51XA Displaced fracture of medial malleolus of right tibia, initial encounter for closed fracture (principal); S20.211A Contusion of right front wall of thorax, initial encounter; I10 Essential (primary) hypertension; E11.42 Type 2 diabetes mellitus with diabetic polyneuropathy; Z79.84 Long term (current) use of oral hypoglycemic drugs; Z79.899 Other long term (current) drug therapy; W00.0XXA Fall on same level due to ice and snow, initial encounter
CPT/HCPCS: 01462; 27762; 36415; 71100; 73600; 73610; 80048; 82962; 85025; 85610; 85730; 96372; 96374; 96375; 99285; A9270; G0378; J1644; J2405; J2704; J3010; J7050